=== PATIENT | male | born 1950 | race Caucasian/White ===

== ENCOUNTER → 2018-04-16 12:41 | Outpatient (CLI) | payer BC, SELFPAY ==
[2018-04-16 14:08] LABS: PSA,Total - Annual Screen 2.52 ng/mL (0.00-4.00)
== END ==
PROVIDERS: Family Provider Internal Medicine; PCP Internal Medicine; Visit Provider Urology
DX: Z12.5 Encounter for screening for malignant neoplasm of prostate (principal)
CPT/HCPCS: 36415; 84153; G0103

== ENCOUNTER → 2019-05-09 12:58 | Outpatient (CLI) | payer BC, SELFPAY ==
[2019-05-09 14:07] LABS: PSA,Total- Diagnostic 2.46 ng/mL (0.0-4.0)
== END ==
PROVIDERS: Family Provider Internal Medicine; PCP Internal Medicine; Referring Provider Urology; Visit Provider Urology
DX: Z12.5 Encounter for screening for malignant neoplasm of prostate (principal)
CPT/HCPCS: 36415; 84153

== ENCOUNTER → 2022-02-04 | Outpatient (CLI) | payer MEDICARE, OTHER, SELFPAY ==
[2022-02-04 16:20] LABS: PSA,Total- Diagnostic 6.99 ng/mL (0.0-4.0)
== END | disposition home or self-care (01) ==
LOC: LAB 14:44
PROVIDERS: PCP Internal Medicine; Referring Provider Urology; Visit Provider Urology
DX: R97.20 Elevated prostate specific antigen [PSA] (principal)
CPT/HCPCS: 36415; 84153

== ENCOUNTER → 2022-08-04 | Outpatient (CLI) | payer MEDICARE, OTHER, SELFPAY ==
[2022-08-04 14:12] LABS: PSA,Total- Diagnostic 8.53 ng/mL (0.0-4.0)
== END | disposition home or self-care (01) ==
LOC: LAB 12:47
PROVIDERS: PCP Internal Medicine; Referring Provider Registered Nurse; Visit Provider Registered Nurse
DX: R97.20 Elevated prostate specific antigen [PSA] (principal)
CPT/HCPCS: 36415; 84153

== ENCOUNTER → 2022-09-09 | Outpatient (CLI) | payer MEDICARE, OTHER, SELFPAY ==
--- NOTE | 2022-09-09 17:01 | MRI_ITS ---
STUDY: MR PELVIS WITH AND WITHOUT CONTRAST (PROSTATE) REASON FOR EXAM: Male, 72 years old. Elevated PSA TECHNIQUE: Standardized multiparametric prostate MRI with T1, T2, DWI/ADC sequences were obtained in 3 orthogonal planes, and dynamic contrast enhancement sequences. 15 ml of clariscan contrast material was administered intravenously for the contrast portion of the examination. . COMPARISON: None. FINDINGS: The prostate volume measures 37.5 mm3. The contours of the prostate gland are smooth. There is not mass effect on the bladder base. The transition zone is heterogenous. PI-RADS DWI score 4 - Focal markedly hypointense on ADC and markedly hyperintense on high b-value DWI; < 1.5 cm on axial. PI-RADS T2W score 4 - Non-circumscribed, homogeneous, moderately hypointense, and <1.5 cm in greatest dimension. 8.1 x 8.3 mm nodule in the right anterior mid transitional zone as seen on image 12-13 series 5, image 17 series 700 and image 17 series 701. Contrast enhancement no early or contemporaneous enhancement; or diffuse multifocal enhancement NOT corresponding to a focal finding on T2W and/or DWI or focal ehancement responding to a lesion demonstrating features of BPH onT2WI (including features of extruded BPH in the PZ). The peripheral zone is homogenous. PI-RADS DWI score 2 - Linear/wedge shaped hypointense on ADC and/or linear/wedge shaped hyperintense on high b-value DWI. PI-RADS T2W score 2 - Linear, wedge-shaped, or diffuse mild hypointensity, usually with indistinct margin. Contrast enhancement no early or contemporaneous enhancement; or diffuse multifocal enhancement NOT corresponding to a focal finding on T2W and/or DWI or focal enhancement responding to a lesion demonstrating features of BPH onT2WI (including features of extruded BPH in the PZ) The seminal vesicles demonstrate normal margins and T2 signal pattern. No mass lesion or invasion depicted. The rectoprostatic angles are normal. Urinary bladder is normal without wall thickening. The vascular structures of the are normal. The visualized hollow viscus structures are normal. Small fat-containing right inguinal hernia. No bone marrow edema or mass lesion depicted. MRI/Pelvis W/WO Contrast IMPRESSION: 1. PIRADS v2.1 2019 -- 4 - High (clinically significant cancer is likely). 2. Subcentimeter nodule of anterior right mid transitional zone with restricted diffusion. Electronically Signed: Phan Jane (Brooks), at 16:00 EST Reading Location ID and State: [address] [place] , Service support ,
[2022-09-09 17:15] LABS: CREATININE FINGERSTICK < 0.9 mg/dL (0.70-1.30); EGFR FINGERSTICK > 60.0000 mL/min (>60)
== END | disposition home or self-care (01) ==
LOC: MRI 16:18
PROVIDERS: PCP Internal Medicine; Visit Provider Urology
DX: R97.20 Elevated prostate specific antigen [PSA] (principal)
CPT/HCPCS: 72197; A9575

== ENCOUNTER → 2022-10-06 | Outpatient (CLI) | payer MEDICARE, OTHER, SELFPAY ==
--- NOTE | 2022-10-06 | PROSBIL_PTH ---
PATIENT: SCOTTY AVENDANO LOC: [facility] U#:[id number] AGE/SX: 72/M ROOM: RE10/06/[address]: Dr. Antonio Mojica MD : 1950 BED: DIS: 10/06/2022 SPEC #: [id number] RECD: 10/07/22 09:11 STATUS: JAY ROGERS #: [id number] KEAGAN: 10/06/22 00:[address]: Antonio Mojica DEPT: SURGICAL PATHOLOGY RECD BY: Nishant Jimenez ENTERED: 10/07/22 09:12 SP TYPE: PROST BX LETICIA DR: Dr. Yamileth Chacon DO Tissues: A - PROSTATE RIGHT B - PROSTATE RIGHT C - PROSTATE RIGHT D - PROSTATE LEFT E - PROSTATE LEFT F - PROSTATE LEFT Procedures: PROSTATE BX HEADER OPERATION: Prostate biopsy PRE-OP DIAGNOSIS: Elevated PSA TISSUE SUBMITTED: A - Right apex, B - Right mid, C - Right base, D - Left apex, E - Left mid, F - Left base MICROSCOPIC DIAGNOSIS A. Right prostate, apex, core biopsy: Prostatic tissue, negative for malignancy. Focal acute and chronic inflammation. B. Right prostate, mid, core biopsy: Prostatic tissue, negative for malignancy. Focal acute and chronic inflammation. C. Right prostate, base, core biopsy: Prostatic tissue, negative for malignancy. D. Left prostate, apex, core biopsy: Prostatic tissue, negative for malignancy. E. Left prostate, mid, core biopsy: Prostatic tissue, negative for malignancy. F. Left prostate, base, core biopsy: Prostatic tissue, negative for malignancy. Focal acute and chronic inflammation. 10/08/2022 MICROSCOPIC DESCRIPTION Slides are reviewed. GROSS DESCRIPTION A - Received is one container designated prostate, right apex. The specimen consists of two elongated fragments of light grimm-white soft tissue each measuring 1.5 cm in length and 0.1 cm in diameter. The specimen is totally submitted in one cassette. B - Received is one container designated prostate, right mid. The specimen consists of two elongated fragments of light grimm-white soft tissue each measuring 1.5 cm in length and 0.1 cm in diameter. The specimen is totally submitted in one cassette. C - Received is one container designated prostate, right base. The specimen consists of two elongated fragments of light grimm-white soft tissue each measuring 1.5 cm in length and 0.1 cm in diameter. The specimen is totally submitted in one cassette. D - Received is one container designated prostate, left apex. The specimen consists of two elongated fragments of light grimm-white soft tissue each measuring 1.2 cm in length and 0.1 cm in diameter. The specimen is totally submitted in one cassette. E - Received is one container designated prostate, left mid. The specimen consists of two elongated fragments of light grimm-white soft tissue measuring 1.0 and 1.5 cm in length and 0.1 cm in diameter. The specimen is totally submitted in one cassette. F - Received is one container designated prostate, left base. The specimen consists of two elongated fragments of light grimm-white soft tissue each measuring 1.5 cm in length and 0.1 cm in diameter. The specimen is totally submitted in one cassette. /AM:yesica 10/08/2022 TC:3 CPT: G0146
== END | disposition home or self-care (01) ==
LOC: LABSPEC 16:12
PROVIDERS: PCP Internal Medicine; Referring Provider Urology; Visit Provider Urology
DX: R97.20 Elevated prostate specific antigen [PSA] (principal)
CPT/HCPCS: 88305; G0416

== ENCOUNTER → 2023-04-09 | Outpatient (CLI) | payer MEDICARE, OTHER, SELFPAY | END | disposition home or self-care (01) | LOC: LAB 14:40 | PROVIDERS: PCP Internal Medicine; Referring Provider Registered Nurse; Visit Provider Registered Nurse | DX: R97.20 Elevated prostate specific antigen [PSA] (principal) | CPT/HCPCS: 36415; 84153 ==

== ENCOUNTER → 2023-06-19 | Outpatient (CLI) | payer MEDICARE, OTHER, SELFPAY ==
--- NOTE | 2023-06-19 | PROSBIL_PTH ---
PATIENT: SCOTTY AVENDANO LOC: [facility] U#:[id number] AGE/SX: 73/M ROOM: RE06/19/[address]: Dr. Antonio Mojica MD : 1950 BED: DIS: 06/19/2023 SPEC #: [id number] RECD: 06/19/23 10:44 STATUS: JAY RELouis #: [id number] KEAGAN: 06/19/23 00:[address]: Antonio Mojica DEPT: SURGICAL PATHOLOGY RECD BY: Nishant Jimenez ENTERED: 06/22/23 10:46 SP TYPE: PROST BX LETICIA DR: Dr. Yamileth Chacon, [facility] Tissues: A - PROSTATE RIGHT B - PROSTATE RIGHT C - PROSTATE RIGHT D - PROSTATE LEFT E - PROSTATE LEFT F - PROSTATE LEFT Procedures: PROSTATE BX HEADER OPERATION: Bilateral saturation prostate biopsy PRE-OP DIAGNOSIS: Elevated PSA, BPH with lower urinary tract symptoms TISSUE SUBMITTED: A - Right base, B - Right mid, C - Right apex, D - Left base, E - Left mid, F - Left apex MICROSCOPIC DIAGNOSIS A. Right prostate, base, core biopsy: Minimal chronic inflammation. B. Right prostate, mid, core biopsy: Focal high-grade prostatic intraepithelial neoplasia (HGPIN). C. Right prostate, apex, core biopsy: No pathologic change. D. Left prostate, base, core biopsy: Mild chronic inflammation. E. Left prostate, mid, core biopsy: Mild chronic inflammation. F. Left prostate, apex, core biopsy: No pathologic change. AM:tru 06/23/2023 MICROSCOPIC DESCRIPTION Slides are reviewed. GROSS DESCRIPTION A - Received is one container designated prostate, right base. The specimen consists of three elongated fragments of light grimm-white soft tissue measuring 1.0 to 1.9 cm in length and 0.1 cm in diameter. The specimen is totally submitted in one cassette. B - Received is one container designated prostate, right mid. The specimen consists of three elongated fragments of light grimm-white soft tissue each measuring 2.2 cm in length and 0.1 cm in diameter. The specimen is totally submitted in one cassette. C - Received is one container designated prostate, right apex. The specimen consists of two elongated fragments of light grimm-white soft tissue each measuring 2.0 cm in length and 0.1 cm in diameter. The specimen is totally submitted in one cassette. D - Received is one container designated prostate, left base. The specimen consists of two elongated fragments of light grimm-white soft tissue each measuring 1.8 cm in length and 0.1 cm in diameter. The specimen is totally submitted in one cassette. E - Received is one container designated prostate, left mid. The specimen consists of two elongated fragments of light grimm-white soft tissue measuring 1.5 and 2.0 cm in length and 0.1 cm in diameter. The specimen is totally submitted in one cassette. F - Received is one container designated prostate, left apex. The specimen consists of two elongated fragments of light grimm-white soft tissue each measuring 1.7 cm in length and 0.1 cm in diameter. The specimen is totally submitted in one cassette. / SJ:rg 06/22/2023 TC:3 CPT: G0146
== END | disposition home or self-care (01) ==
LOC: LABSPEC 15:05
PROVIDERS: PCP Internal Medicine; Visit Provider Urology
DX: R97.20 Elevated prostate specific antigen [PSA] (principal); N42.31 Prostatic intraepithelial neoplasia; N41.9 Inflammatory disease of prostate, unspecified; N40.1 Benign prostatic hyperplasia with lower urinary tract symptoms
CPT/HCPCS: 88305; G0416

== ENCOUNTER 2023-07-31 14:00 | Outpatient (RCR) | payer MEDICARE, OTHER, SELFPAY ==
--- NOTE | 2023-07-27 16:38 | HP.PTEVAL_ITS ---
Patient's Visit Information Visit Information Visit Information: SCOTTY AVENDANO is a 73 year old M referred to Physical Therapy by Dr. Yamileth Barron DO with a diagnosis of LUMBAR RADICULOPATHY. Date of Evaluation: 07/27/23 Physical Therapist: Ny Estes PT, Cert MDT Visit Plan Frequency: 2x /Week Duration: 4 Weeks Plan: FOCUS ON PROPER HEP (REVIEW CURRENT HEP) AND PROPER BODY MECHANICS FOR C ARE GIVING FOR WITH MS. Neutral Spine Core Stability Exercises and Jadon LE Hip Flexor, Hamstring and Calf Stretching to help reduce stress to the Lumbar Spine with all Daily Activities. Jadon LE Strengthening. Instruction in Proper Posture Control, Body Mechanics, and Appropriate Activity Modifications. HEP Instruction. Subjective Subjective: Work/Leisure: RETIRED. EXERCISES ABOUT 2-3 TIMES A WK. RUNS A LITTLE BIT IN THE BASEMENT. CHANGES EX'S UP. HAS MS AND PATIENT DOES A LOT OF CAREGIVING/LIFTING. Disability: NO Present symptoms: INTERMITTENT L LOW BACK/BUTTOCK AND LATERAL LEG PAIN. INTERMITTENT R LOW BACK/BUTTOCK AND LATERAL LEG PAIN. PATIENT DENIES JADON LE NUMBNESS AND TINGLING. PATIENT DENIES JADON FOOT SX'S. PATIENT REPORTS THE SX'S ARE SOMETIMES ON THE R, SOMETIMES ON THE L AND SOMETIMES BUT RARELY JADON LE'S AT THE SAME TIME. Present since: YEARS AGO Pain Scale: WORST 7/10, LEAST 0/10 Currently: 0/10 Is it getting better, worse or staying the same: GETTING BETTER. Commenced as a result of: NO APPARENT REASON - GRADUALLY NOTICED ONSET WHEN LYING DOWN. Symptoms at onset: R LOW BACK Worse: LYING DOWN AT NIGHT Better: CHANGE SIDES (LAST NIGHT LYING ON L SIDE WAS THE ONLY THING THAT WAS COMFORTABLE). Disturbed sleep: YES Previous history/Previous treatment: NOTHING. NO BACK SURGERY. NO MARK'S. NO CHIROPRACTIC. NO PHYSICAL THERAPY. NO PRESCRIPTION MEDICATIONS. SELF-TREATMENT - TOPICAL OTC MEDICATION, TYLONOL, STRETCHING. Treatment this episode: STEROID RECENTLY - ENDED ABOUT 8 OR 9 DAYS AGO. - PATIENT THINKS IT HELPED. Coughing/sneezing/straining: NEGATIVE Gait: WHEN IT WAS BAD FOR ABOUT 45 MINUTES IN THE MORNING COULD BARELY WALK THEN WALKING WOULD BECOME NORMAL. Bowel or Bladder Dysfunction: NO Accidents: NO Unexplained weight loss: NO Imaging: MRI OF PROSTATE - NEGATIVE. LUMBAR X-RAY ABOUT A YEAR AGO WHEN TOLD DR. BARRON WHICH SHOWED OA PER PATIENT REPORT. PMH/Recent major surgery: FLAT FEET. H/O L FOOT FX ABOUT 30 YEARS AGO WITH RESIDUAL DEFORMITY. H/O JADON FOOT AND ANKLE PAIN ABOUT 6 MONTHS AGO THAT WENT AWAY FOR NO APPARENT REASON. STATES HE WAS RUNNING A LOT OUTSIDE UNTIL ABOUT A YEAR AGO. PATIENT REPORTS HE WANTS TO BE ABLE TO RUN SOME BUT NOT REALLY A LOT. Objective Objective: Sitting/Standing Posture: L SHIFT. R SHLD LEVEL HIGHER THAN R. ANTERIOR PELVIC TILT. Active Correction of posture: WORSE Other Observations: INDEP GAIT AND TRANSFERS. JADON HIP ER AND TOEING OUT. Sensory deficit: JADON LE LIGHT TOUCH SENSATION GROSSLY INTACT AND SYMMETRICAL ROM deficit: TIGHT JADON HIP IR'S. JADON HIP FLEXOR, HS AND CALF TIGHTNESS. Motor deficit: JADON LE'S GROSSLY 5/5 WITH MMT'ING. Dural Signs: NEGATIVE JADON LE'S. Lumbar mvmt loss: flex - NIL ext - MOD R SG - MOD L SG - MIN Core strength: FAIR Palpation: NO ACUTE LOWER THORACIC OR LUMBAR TENDERNESS. NO HIP TENDERNESS. Balance/Special Test Scores Oswestry Low Back Score: 8 Goals Goal 1:: PATIENT WILL REPORT 75% DECREASED BACK AND LE SX'S IN LYING TO IMPROVE SLEEP FUNCTION Goal Time Frame: 2-4 Weeks Goal 2:: PATIENT WILL DEMONSTRATED GOOD POSTURE AND BODY MECHANICS THROUGHOUT PT SESSION. Goal Time Frame: 2-4 Weeks Goal 3:: PATIENT WILL BE INDEP WITH A HEP FOR CONTINUED IMPROVEMENT ONCE FORMAL PHYSICAL THERPAY CONCLUDES. Goal Time Frame: 2-4 Weeks Rehabilitation Potential Physical Therapy Diagnosis: LOW BACK AND JADON LE PAIN. CORE WEAKNESS. CORE AND HIP STIFFNESS. Rehabilitation Potential: Good Anticipated Interventions Patient/Client Instruction: Educate patient on: Condition, Plan of Care and Risk Factors For the Purpose of:: To improve self management Therapeutic Exercise to Include: Strength training, Body mechanics, Postural training, Flexibilty training, Neuromotor development and Dynamic Lumbar Stabilization For the Purpose of:: To decrease pain, To increase ROM, To improve muscle performance and motor function, To increase tolerance to activity/condition/position and To improve ability of physical actions for home/community/work/leisure Text: Thank you for the opportunity to evaluate your patient. For Medicare and Medicare HMO plans, please review the plan of care and approve it. It will need to be FAXED BACK to us at [phone] for Medicare purposes. For Medicare only, by signing this I certify the plan of care. Please let me know if there are questions or concerns regarding this plan of care. Physician Signature: Date:
--- NOTE | 2023-08-17 13:41 | HP.PTDCNRP_ITS ---
Patient Information Patient Information: SCOTTY AVENDANO was seen in my office for initial evaluation on 07/27/23. The following Plan of Care was established for this patient: POC Established Initial Frequency: 2x /Week Initial Duration: 4 Weeks Anticipated Interventions Patient/Client Instruction: Educate patient on: Condition, Plan of Care and Risk Factors For the Purpose of:: To improve self management Therapeutic Exercise to Include: Strength training, Body mechanics, Postural training, Flexibilty training, Neuromotor development and Dynamic Lumbar Stabilization For the Purpose of:: To decrease pain, To increase ROM, To improve muscle performance and motor function, To increase tolerance to activity/condition /position and To improve ability of physical actions for home/community/work/leisure Last Seen Last Seen: This patient was last seen in our office . Pertinent comments regarding their Physical therapy will appear below: This patient has not returned to Physical Therapy and is appropriate to return to MD for further follow-up as needed. At this point I will be discontinuing this patient from physical therapy. I would be happy to see this patient again in the future if found appropriate by the physician. Thank you! Ny Estes, PT, Cert MDT Balance/Gait/Functional tests Balance/Special Test Scores Oswestry Low Back Score: 8
== END 2023-07-31 19:00 | disposition home or self-care (01) ==
LOC: PT 14:00
PROVIDERS: PCP Internal Medicine; Referring Provider Internal Medicine; Visit Provider Internal Medicine
DX: M54.16 Radiculopathy, lumbar region (principal)
CPT/HCPCS: 97110; 97162

== ENCOUNTER → 2024-02-19 | Outpatient (CLI) | payer MEDICARE, OTHER, SELFPAY ==
[2024-02-19 14:24] LABS: PSA,Total- Diagnostic 6.91 ng/mL (0.0-4.0)
== END | disposition home or self-care (01) ==
PROVIDERS: PCP Internal Medicine; Referring Provider Urology; Visit Provider Urology
DX: R97.20 Elevated prostate specific antigen [PSA] (principal)
CPT/HCPCS: 36415; 84153; 84154

== ENCOUNTER → 2025-02-23 | Outpatient (CLI) | payer MEDICARE, OTHER, SELFPAY ==
[2025-02-23 15:16] LABS: PSA,Total- Diagnostic 7.68 ng/mL (0.00-4.00)
== END | disposition home or self-care (01) ==
LOC: LAB 13:31
PROVIDERS: PCP Internal Medicine; Referring Provider Urology; Visit Provider Urology
DX: R97.20 Elevated prostate specific antigen [PSA] (principal)
CPT/HCPCS: 36415; 84153

== ENCOUNTER → 2025-07-13 | Outpatient (CLI) | payer MEDICARE, OTHER, SELFPAY ==
[2025-07-13 15:23] LABS: Hematocrit 42.2 % (40-54); Hemoglobin 14.2 g/dL (13.0-16.5); Immature Granulocytes Count 0.010 X10^3/uL (0.0-0.0); Mean Corp Hgb Conc 33.6 g/dL (32-36); Mean Corpuscular Volume 88.5 fL (80-94); Mean Platelet Vol. 11.0 fl (6.2-12.0); NRBC Flagged by Analyzer 0 % (0-5); Platelet Count 340 K/mm3 (150-450); RBC Distribution Width CV 13.5 % (11.6-14.6); RBC Distribution Width SD 44.1 fl (35.1-43.9); Red Blood Count 4.77 M/mm3 (4.6-6.2); White Blood Count 5.8 K/mm3 (4.4-11.0)
[2025-07-13 15:44] LABS: Creatinine, Urine (random) 153.00 mg/dL (39.00-259.00); Microalbumin,Random Urine 19.0 mg/L (<20 mg/L)
[2025-07-13 15:58] LABS: AST(SGOT) 22 U/L (<=37); Alanine Aminotransfer ALT/SGPT 24 U/L (<=46); Albumin, Serum 4.1 g/dL (3.4-4.8); Alkaline Phosphatase 85 U/L (40-129); Anion Gap 8 (5-15); BUN 13 mg/dL (4-19); BUN/Creat Ratio 16.8 RATIO (10-20); Calcium,Total 9.8 mg/dL (7.6-11.0); Carbon Dioxide 29.9 mmol/L (21.0-32.0); Chloride 103 mmol/L (98-108); Cholesterol 137 mg/dL (<=200); Globulin 2.7 g/dL (2.2-4.2); Glucose 124 mg/dL (70-99); Low Density Lipoprotein Calc. 73 mg/dL; Potassium 3.7 mmol/L (3.3-5.1); Triglycerides 77 mg/dL; Very Low Density Lipoprotein 15 mg/dL (5-40); Vitamin D,25 Hydroxy 58.8 ng/mL (30-100); cholesterol:hdl ratio screen 2.83
== END | disposition home or self-care (01) ==
LOC: MTLAB 13:18
PROVIDERS: PCP Internal Medicine; Referring Provider Internal Medicine; Visit Provider Internal Medicine
DX: E11.9 Type 2 diabetes mellitus without complications (principal); E78.49 Other hyperlipidemia; E55.9 Vitamin D deficiency, unspecified; I11.9 Hypertensive heart disease without heart failure
CPT/HCPCS: 36415; 80053; 80061; 82043; 82306; 82570; 83036; 85025